=== PATIENT | female | born 1955 | race Caucasian/White ===

== ENCOUNTER → 2016-08-26 | Outpatient (CLI) | payer OTHER ==
[~2016-08-26] VITALS: Ht 165.1 cm; Wt 123.4 kg
[~2016-08-26] MED LIST: AMITIZA; ASPI81TA3; ASPI81TA85 PO; CALC600T10; CHLO25TA PO; ENABLEX; ESTR1TD; FLAG500T; FLUO20CA9 PO; FOLI1TAB2 PO; GABA300C3 PO; HYDR25TA6; IMODIUM; K-TA10TA PO; LIDOCAINE 2% INJ 100 MG/5 ML SDV (FOR ANES.) As Ordered ONE; LOSA50TA20 PO; METF500T PO; METO10TA2; NEUR600T PO; NS 1,000 ML IV SCH; OMEG100011 PO; PAXI40TA; PEPT525S; PRIL20CA; PRIL20CA9 PO; PROPOFOL 200 MG/20 ML VIAL As Ordered ONE; SIMV40TA2 PO; TELM20TA; TENO25TA; VITA10002 PO; VITA200038 PO; VITORIN
--- NOTE | 2016-08-26 13:50 | ROOR ---
Patient Name: Nishi Dominguez Procedure Date: 08/26/2016 1:35 PM Date of : 1955 Age: 61 Room: [facility], [facility] Gender: Female Note Status: Finalized Procedure: Upper GI endoscopy Indications: Surveillance for malignancy due to personal history of Ricketts's esophagus Providers: Daniel BALES MD Referring MD: PATRICIA HAYES MD Requesting Provider: Medicines: Monitored Anesthesia Care Complications: No immediate complications. Procedure: Pre-Anesthesia Assessment: - The heart rate, respiratory rate, oxygen saturations, blood pressure, adequacy of pulmonary ventilation, and response to care were monitored throughout the procedure. The Endoscope was introduced through the mouth, and advanced to the second part of duodenum. The upper GI endoscopy was accomplished without difficulty. The patient tolerated the procedure well. Findings: The esophagus and gastroesophageal junction were examined with white light and narrow band imaging (NBI) from a forward view and retroflexed position. There were esophageal mucosal changes secondary to established short-segment Ricketts's disease. These changes involved the mucosa at the upper extent of the gastric folds (36 cm from the incisors) extending to the Z-line (35 cm from the incisors). [place]-colored mucosa was present. The maximum longitudinal extent of these esophageal mucosal changes was 2 cm in length. Mucosa was biopsied with a cold forceps for histology randomly. A small hiatal hernia was present. A few sessile fundic gland polyps were found in the gastric body. The exam was otherwise without abnormality. Impression: - Esophageal mucosal changes secondary to established (2 cm)/short-segment Ricketts's disease. Biopsied. - Small hiatal hernia. - A few fundic gland polyps. - The examination was otherwise normal. Recommendation: - Continue present medications. - Await pathology results. - Repeat upper endoscopy in 3 years for surveillance based on pathology results. Daniel Bales MD Daniel BALES MD 08/26/2016 1:49:47 PM This report has been signed electronically. Number of Addenda: 0 Note Initiated On: 08/26/2016 1:35 PM Estimated Blood Loss: Estimated blood loss: none.
--- NOTE | 2016-08-26 14:03 | ROOR ---
Patient Name: Nishi Dominguez Procedure Date: 08/26/2016 1:35 PM Date of : 1955 Age: 61 Room: [facility] Gender: Female Note Status: Finalized Procedure: Colonoscopy Indications: High risk colon cancer surveillance: Personal history of colonic polyps, Last colonoscopy: June 2013 Providers: Daniel BALES MD Referring MD: PATRICIA HAYES MD Requesting Provider: Medicines: Monitored Anesthesia Care Complications: No immediate complications. Procedure: Pre-Anesthesia Assessment: - The heart rate, respiratory rate, oxygen saturations, blood pressure, adequacy of pulmonary ventilation, and response to care were monitored throughout the procedure. The Colonoscope was introduced through the anus and advanced to the cecum, identified by appendiceal orifice and ileocecal valve. The colonoscopy was performed without difficulty. The patient tolerated the procedure well. The quality of the bowel preparation was good. Findings: The perianal and digital rectal examinations were normal. The ileocecal valve was lipomatous. Small Internal Hemorrhoids. The exam was otherwise without abnormality on direct and retroflexion views. (Exam: Complete, Prep: Good or Excellent.) Impression: - Small Internal Hemorrhoids. - The examination of the colon is normal on direct and retroflexion views. - No specimens collected. Recommendation: - Repeat colonoscopy in 5 years for surveillance based on personal history of previous adenomatous polyps. Daniel Bales MD Daniel BALES MD 08/26/2016 2:03:04 PM This report has been signed electronically. Number of Addenda: 0 Note Initiated On: 08/26/2016 1:35 PM Estimated Blood Loss: Estimated blood loss: none.
[2016-08-26 14:32] VITALS: BP 137/78
== END ==
LOC: M OPP 10:23
PROVIDERS: ATTEND Internal Medicine Gastroenterology
DX: Z12.11 Encounter for screening for malignant neoplasm of colon (principal); Z86.010 Personal history of colon polyps; K63.89 Other specified diseases of intestine; K64.8 Other hemorrhoids; K22.70 Barrett's esophagus without dysplasia; K44.9 Diaphragmatic hernia without obstruction or gangrene; K31.7 Polyp of stomach and duodenum; E11.9 Type 2 diabetes mellitus without complications; K21.9 Gastro-esophageal reflux disease without esophagitis; F32.9 Major depressive disorder, single episode, unspecified; E78.00 Pure hypercholesterolemia, unspecified; K59.00 Constipation, unspecified; K58.9 Irritable bowel syndrome, unspecified; M19.90 Unspecified osteoarthritis, unspecified site; R06.83 Snoring; G47.30 Sleep apnea, unspecified; F03.90 Unspecified dementia, unspecified severity, without behavioral disturbance, psychotic disturbance, mood disturbance, and anxiety; E04.1 Nontoxic single thyroid nodule; Z79.82 Long term (current) use of aspirin; Z79.899 Other long term (current) drug therapy; Z79.84 Long term (current) use of oral hypoglycemic drugs

== ENCOUNTER → 2016-10-05 | Outpatient (REF) | payer OTHER ==
[~2016-10-05] MED LIST changes: +GABA-282 PO; -GABA300C3 PO; -LIDOCAINE 2% INJ 100 MG/5 ML SDV (FOR ANES.) As Ordered ONE; -NS 1,000 ML IV SCH; -PROPOFOL 200 MG/20 ML VIAL As Ordered ONE
[2016-10-05 17:23] LABS: ALBUMIN 3.4 GM/DL (3.2-5.2); ALBUMIN/GLOBULIN RATIO 0.89 (1.00-1.93); ALKALINE PHOSPHATASE 81 U/L (45-117); ALT/SGPT 25 U/L (12-78); ANION GAP 10 MEQ/L (8-16); AST/SGOT 18 U/L (15-37); BILIRUBIN,TOTAL 0.6 MG/DL (0.2-1.0); BLOOD UREA NITROGEN 17 MG/DL (7-18); CALCIUM LEVEL 9.4 MG/DL (8.8-10.2); CARBON DIOXIDE LEVEL 30 MEQ/L (21-32); CHLORIDE LEVEL 101 MEQ/L (98-107); CHOLESTEROL LEVEL 158 MG/DL (<200); CREATININE FOR GFR 0.89 MG/DL (0.55-1.02); GLOMERULAR FILTRATION RATE > 60.0 (>45); GLUCOSE, FASTING 91 MG/DL (80-110); SODIUM LEVEL 141 MEQ/L (136-145); TOTAL PROTEIN 7.2 GM/DL (6.4-8.2); TRIGLYCERIDES LEVEL 166 MG/DL (<150)
[2016-10-05 17:54] LABS: MEAN CORPUSCULAR HEMOGLOBIN 28.6 pg (27.0-33.0); MEAN CORPUSCULAR VOLUME 89.3 fl (80.0-96.0); RED CELL DISTRIBUTION WIDTH 13.6 % (11.5-14.5); RETIC HEMOGLOBIN CONTENT CHr 30.1 PG (24-36); RETICULOCYTE % ADVIA2120 2.7 % (0.5-1.5); WHITE BLOOD COUNT 9.7 K/mm3 (4.0-10.0)
[2016-10-05 17:57] LABS: FOLATE > 24.0 NG/ML; VITAMIN B12 LEVEL 1448 PG/ML
== END ==
LOC: M LABDRAW1 15:47
PROVIDERS: ATTEND Family Medicine
DX: E78.5 Hyperlipidemia, unspecified (principal); I10 Essential (primary) hypertension; D50.8 Other iron deficiency anemias; E55.9 Vitamin D deficiency, unspecified

== ENCOUNTER → 2016-12-06 | Outpatient (REF) | payer OTHER ==
[~2016-12-06] MED LIST changes: +DRIS50002 PO
[2016-12-06 20:59] LABS: PERCENT SATURATION 12.5 % (13.2-37.4)
== END ==
LOC: M LABNEURO 16:55
PROVIDERS: ATTEND Psychiatry & Neurology Neurology
DX: E11.9 Type 2 diabetes mellitus without complications (principal); R20.2 Paresthesia of skin

== ENCOUNTER → 2016-12-12 | Day surgery (SDC) | payer OTHER ==
[~2016-12-12] VITALS: Ht 165.1 cm; Wt 127.0 kg
[~2016-12-12] MED LIST changes: +ACETAMINOPHEN 325 MG TAB PO PRN; +AcetaZOLAMIDE 500 MG ER CAP PO ONE; +BSS with VANC/TOB/EPI for EYE CASES IR ONE; +CEFUROXIME 1MG/0.1ML INTRACAMERAL INJ As Ordered ONE; +CYCLOPENTOLATE 2% OPHTH SOLN 2ML BTL OD ONE; +HEALON DUET (HEALON 10MG/ML 0.55ML & HEALON ENDOCOAT 30MG/ML 0.85ML) As Ordered ONE; +KETOROLAC 0.5% OPHTH SOLN OD ONE; +LIDOCAINE 1% SDV 5 ML VIAL As Ordered ONE; +LIDOCAINE 4% INJ 5 ML AMP OU ONE; +LR 1,000 ML IV SCH; +MIDAZOLAM INJ 2 MG/2 ML VIAL (J2250) As Ordered ONE; +MOXIFLOXACIN IN BSS 0.25MG/0.25ML INTRACAMERAL INJ (OR EYE ONLY)(J2280) As Ordered ONE; +OFLOXACIN 0.3 % (OCUFLOX) OPTH SOL 5ML OD ONE; +PHENYLEPHRINE 2.5% OPHTH SOL 2ML OD ONE; +PHENYLEPHRINE HCL 10 % OPHTH. SOL 5ML As Ordered ONE; +PHENYLEPHRINE HCL 10 % OPHTH. SOL 5ML OD ONE; +POVIDONE-IODINE 5% OPHTH PREP SOL 30ML As Ordered ONE; +PROPARACAINE 0.5% OPHTH SOL 15ML OD PRN; +TRIAMCINOLONE PRES FR 40 MG/ML 1ML(TRIESENCE)(OR EYE ONLY)(J3300 PER 1MG) As Ordered ONE; +TRIMETHOBENZAMIDE 300 MG CAP PO PRN; +TROPICAMIDE 1% OPHTH SOLN 2ML OD ONE; +fentaNYL 100 MCG/2 ML INJECTION (J3010) As Ordered ONE
[2016-12-12 09:35] VITALS: BP 135/63
--- NOTE | 2016-12-20 21:03 | RO ---
DATE OF PROCEDURE: 12/12/2016 PREPROCEDURE DIAGNOSIS: Cataract right eye. POSTPROCEDURE DIAGNOSIS: Cataract right eye. PROCEDURE: Phacoemulsification with intraocular lens implantation, 19.5 diopters. SURGEON: Dr. Carlos Rutledge SHIPPING AGENT: None. ANESTHESIA: COMPLICATIONS: None. DESCRIPTION OF PROCEDURE: The patient was brought to the operating room, laid in supine position, the right eye was prepped and draped in a sterile fashion for ophthalmic surgery and a lid speculum was placed. Sideport incision was made and EndoCoat was injected into the anterior chamber. Temporal clear corneal incision was made with a 2.5 mm keratome, followed by capsulorrhexis. This was followed by hydrodissection and phacoemulsification in divide and conquer method within the capsular bag. Excess cortical material was then aspirated followed by injection of Healon into the anterior chamber and placement of the intraocular lens. Excess Healon was then aspirated. The wound was hydrated, intracameral moxifloxacin was given and sub-Tenon Kenalog was given. At the end of the case, lid speculum was removed. No leaks were noted. The patient returned to the recovery room in stable condition.
== END | disposition home or self-care (01) ==
LOC: M SDC 07:08
PROVIDERS: ATTEND Ophthalmology
DX: H26.9 Unspecified cataract (principal); G56.00 Carpal tunnel syndrome, unspecified upper limb; F41.8 Other specified anxiety disorders; R06.00 Dyspnea, unspecified; R60.9 Edema, unspecified; I13.10 Hypertensive heart and chronic kidney disease without heart failure, with stage 1 through stage 4 chronic kidney disease, or unspecified chronic kidney disease; R53.83 Other fatigue; E78.5 Hyperlipidemia, unspecified; R73.01 Impaired fasting glucose; K58.0 Irritable bowel syndrome with diarrhea; M54.5 Low back pain; R20.1 Hypoesthesia of skin; E66.8 Other obesity; G47.30 Sleep apnea, unspecified; M19.90 Unspecified osteoarthritis, unspecified site; K42.9 Umbilical hernia without obstruction or gangrene; E55.9 Vitamin D deficiency, unspecified; N18.2 Chronic kidney disease, stage 2 (mild); E04.1 Nontoxic single thyroid nodule; K31.84 Gastroparesis; K57.30 Diverticulosis of large intestine without perforation or abscess without bleeding; R06.2 Wheezing; R06.83 Snoring; M10.9 Gout, unspecified; R32 Unspecified urinary incontinence; K44.9 Diaphragmatic hernia without obstruction or gangrene; R29.898 Other symptoms and signs involving the musculoskeletal system; F03.90 Unspecified dementia, unspecified severity, without behavioral disturbance, psychotic disturbance, mood disturbance, and anxiety; Z90.710 Acquired absence of both cervix and uterus; Z98.51 Tubal ligation status; Z79.899 Other long term (current) drug therapy; Z79.82 Long term (current) use of aspirin; Z87.410 Personal history of cervical dysplasia; Z79.84 Long term (current) use of oral hypoglycemic drugs
CPT/HCPCS: 66984; J2250; J2280; J3010; J3300

== ENCOUNTER → 2018-03-12 | Outpatient (REF) | payer OTHER ==
[2018-03-12 18:32] LABS: FOLATE > 24.0 NG/ML
== END ==
LOC: M LABNEURO 15:02
DX: D53.8 Other specified nutritional anemias (principal)

== ENCOUNTER → 2018-06-12 | Outpatient (REF) | payer OTHER ==
[~2018-06-12] MED LIST changes: -ACETAMINOPHEN 325 MG TAB PO PRN; -AcetaZOLAMIDE 500 MG ER CAP PO ONE; -BSS with VANC/TOB/EPI for EYE CASES IR ONE; -CEFUROXIME 1MG/0.1ML INTRACAMERAL INJ As Ordered ONE; -CYCLOPENTOLATE 2% OPHTH SOLN 2ML BTL OD ONE; -DRIS50002 PO; +DRIS50003 PO; +FLUO20CA19 PO; -FLUO20CA9 PO; -FOLI1TAB2 PO; +FOLI1TAB5 PO; -GABA-282 PO; +GABA-843 PO; -HEALON DUET (HEALON 10MG/ML 0.55ML & HEALON ENDOCOAT 30MG/ML 0.85ML) As Ordered ONE; -KETOROLAC 0.5% OPHTH SOLN OD ONE; -LIDOCAINE 1% SDV 5 ML VIAL As Ordered ONE; -LIDOCAINE 4% INJ 5 ML AMP OU ONE; -LOSA50TA20 PO; +LOSA50TA73 PO; -LR 1,000 ML IV SCH; -METF500T PO; +METF500T13 PO; -MIDAZOLAM INJ 2 MG/2 ML VIAL (J2250) As Ordered ONE; -MOXIFLOXACIN IN BSS 0.25MG/0.25ML INTRACAMERAL INJ (OR EYE ONLY)(J2280) As Ordered ONE; -OFLOXACIN 0.3 % (OCUFLOX) OPTH SOL 5ML OD ONE; -PHENYLEPHRINE 2.5% OPHTH SOL 2ML OD ONE; -PHENYLEPHRINE HCL 10 % OPHTH. SOL 5ML As Ordered ONE; -PHENYLEPHRINE HCL 10 % OPHTH. SOL 5ML OD ONE; -POVIDONE-IODINE 5% OPHTH PREP SOL 30ML As Ordered ONE; -PROPARACAINE 0.5% OPHTH SOL 15ML OD PRN; -TRIAMCINOLONE PRES FR 40 MG/ML 1ML(TRIESENCE)(OR EYE ONLY)(J3300 PER 1MG) As Ordered ONE; -TRIMETHOBENZAMIDE 300 MG CAP PO PRN; -TROPICAMIDE 1% OPHTH SOLN 2ML OD ONE; -fentaNYL 100 MCG/2 ML INJECTION (J3010) As Ordered ONE
[2018-06-12 18:06] LABS: ALBUMIN 3.2 GM/DL (3.2-5.2); BILIRUBIN,DIRECT 0.2 MG/DL (0.0-0.2); BILIRUBIN,TOTAL 0.6 MG/DL (0.2-1.0); CALCIUM LEVEL 8.9 MG/DL (8.8-10.2); CHOLESTEROL RISK RATIO 3.511 (<5); TOTAL PROTEIN 7.1 GM/DL (6.4-8.2)
[2018-06-12 18:08] LABS: TOTAL 25(OH) VITAMIN D 41.2 NG/ML (30.0-100.0)
== END ==
LOC: M LABDRAW1 17:07
PROVIDERS: ATTEND Family Medicine
DX: E78.2 Mixed hyperlipidemia (principal)

== ENCOUNTER → 2018-07-12 | Outpatient (CLI) | payer OTHER ==
[~2018-07-12] MED LIST changes: +FOLI1TAB11 PO; -FOLI1TAB5 PO; -LOSA50TA73 PO; +LOSA50TA88 PO
--- NOTE | 2018-07-18 06:17 | REP ---
Clinical: Diarrhea. Sitz marker study. Technique: Three AP views of of the abdomen and pelvis. Findings: The bowel gas pattern is nonspecific although mild to moderate fecal stasis cannot be excluded. The patient appears to be status post cholecystectomy. No residual sitz markers are identified. Degenerative changes to the visualized skeletal structures noted. No organomegaly. Impression: Fecal stasis suggested. No residual sitz markers noted. Electronically Signed by Torsten Mata MD 07/18/2018 06:09 A
== END ==
LOC: M RAD 14:08
PROVIDERS: ATTEND Internal Medicine Gastroenterology
DX: R19.7 Diarrhea, unspecified (principal)

== ENCOUNTER → 2018-12-11 | Outpatient (REF) | payer OTHER ==
[~2018-12-11] MED LIST changes: +MICA5TAB; -TELM20TA
[2018-12-11 16:24] LABS: ALBUMIN 3.3 GM/DL (3.2-5.2); BILIRUBIN,DIRECT 0.1 MG/DL (0.0-0.2); BILIRUBIN,TOTAL 0.5 MG/DL (0.2-1.0); CHOLESTEROL RISK RATIO 2.843 (<5); TOTAL PROTEIN 7.1 GM/DL (6.4-8.2)
== END ==
LOC: M LABDRAW1 11:28
PROVIDERS: ATTEND Family Medicine
DX: E78.2 Mixed hyperlipidemia (principal)

== ENCOUNTER → 2019-02-14 | Outpatient (REF) | payer OTHER ==
[~2019-02-14] MED LIST changes: +CYAN100049 PO; -SIMV40TA2 PO; +SIMV40TA20 PO; -VITA10002 PO
[2019-02-14 16:38] LABS: BLOOD UREA NITROGEN 10 MG/DL (7-18); CALCIUM LEVEL 9.2 MG/DL (8.8-10.2); CARBON DIOXIDE LEVEL 31 MEQ/L (21-32); CHLORIDE LEVEL 101 MEQ/L (98-107); CREATININE FOR GFR 0.87 MG/DL (0.55-1.30); GLOMERULAR FILTRATION RATE > 60.0 (>45); GLUCOSE, FASTING 94 MG/DL (70-100); SODIUM LEVEL 138 MEQ/L (136-145)
== END ==
LOC: M LABDRAW1 15:41
PROVIDERS: ATTEND Family Medicine
DX: E87.6 Hypokalemia (principal)

== ENCOUNTER 2019-04-30 15:07 | Emergency (ER) | payer OTHER ==
[~2019-04-30] VITALS: Ht 165.1 cm; Wt 117.7 kg
[~2019-04-30 15:07] MED LIST changes: +SIMV40TA2 PO; -SIMV40TA20 PO
[2019-04-30] MEDS ORDERED: GI COCKTAIL 50ML BTL(HYOSCYAMINE/MAALOX/LIDOCAINE VISCOUS)(1:3:1) PO ONE (15:45)
[2019-04-30 16:09] LABS: ALBUMIN 3.4 GM/DL (3.2-5.2); ALT/SGPT 25 U/L (12-78); BILIRUBIN,DIRECT < 0.1 MG/DL (0.0-0.2); BILIRUBIN,TOTAL 0.6 MG/DL (0.2-1.0); BLOOD UREA NITROGEN 12 MG/DL (7-18); CALCIUM LEVEL 9.3 MG/DL (8.8-10.2); CARBON DIOXIDE LEVEL 26 MEQ/L (21-32); CHLORIDE LEVEL 99 MEQ/L (98-107); CK-MB VALUE MASS 2.5 NG/ML (<3.6); CPK CREATINE PHOSPHOKINASE 119 U/L (26-192); GLOMERULAR FILTRATION RATE > 60.0 (>45); GLUCOSE, FASTING 90 MG/DL (70-100); POTASSIUM SERUM 3.8 MEQ/L (3.5-5.1); SODIUM LEVEL 136 MEQ/L (136-145); TOTAL PROTEIN 7.4 GM/DL (6.4-8.2); TROPONIN I < 0.02 NG/ML (< 0.10)
--- NOTE | 2019-04-30 16:14 | REP ---
Portable chest x-ray: Single view. History: Chest pain. Comparison study: August 20, 2014. Findings: EKG monitoring electrodes are seen. The lungs are symmetrically aerated and clear. Heart size is mildly increased but unchanged. Pulmonary vasculature is not increased. No significant bony abnormality is seen. There is stable degenerative discogenic spurring in the thoracic spine along the right lateral border unchanged. Impression: No acute disease. Mild cardiomegaly unchanged. Electronically Signed by Milo Quiroga MD 04/30/2019 04:05 P
[2019-04-30 16:22] LABS: BASO % 0.4 % (0.0-1.0); EOS # 0.1 10^3/uL (0.0-0.5); EOS % 0.6 % (0.0-3.0); HEMATOCRIT 42.7 % (36.0-47.0); HEMOGLOBIN 13.6 g/dl (12.0-15.5); LYMPH # 1.8 10^3/uL (1.5-5.0); LYMPH % 16.6 % (24.0-44.0); MEAN CORPUSCULAR HEMOGLOBIN 27.8 pg (27.0-33.0); MEAN CORPUSCULAR HGB CONC 31.9 g/dl (32.0-36.5); MEAN CORPUSCULAR VOLUME 87.1 fl (80.0-96.0); MONO # 0.5 10^3/uL (0.0-0.8); MONO % 4.5 % (0.0-5.0); NEUTROPHILS # 8.3 10^3/uL (1.5-8.5); NEUTROPHILS % 77.3 % (36.0-66.0); PLATELET COUNT, AUTOMATED 288 10^3/uL (150-450); WHITE BLOOD COUNT 10.7 10^3/uL (4.0-10.0)
[2019-04-30 16:38] LABS: NT-PRO BNP 67 PG/ML (<125)
[2019-04-30] MEDS ORDERED: KETOROLAC 30 MG/ML VIAL (J1885) IV ONE (17:45)
[2019-04-30 18:37] LABS: CK-MB VALUE MASS 2.4 NG/ML (<3.6); CPK CREATINE PHOSPHOKINASE 120 U/L (26-192); TROPONIN I < 0.02 NG/ML (< 0.10)
[2019-04-30 19:15] VITALS: BP 132/64
--- NOTE | 2019-05-01 05:42 | ECGEPIP ---
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
--- NOTE | 2019-05-01 05:45 | ECGEPIP ---
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
== END 2019-04-30 19:30 | disposition home or self-care (01) ==
LOC: M ED 15:07
DX: R07.89 Other chest pain (principal); E11.9 Type 2 diabetes mellitus without complications; I10 Essential (primary) hypertension; G47.33 Obstructive sleep apnea (adult) (pediatric); G89.29 Other chronic pain; M54.9 Dorsalgia, unspecified; Z79.899 Other long term (current) drug therapy; Z79.84 Long term (current) use of oral hypoglycemic drugs; Z79.82 Long term (current) use of aspirin
CPT/HCPCS: 71045; 80048; 80076; 82550; 82553; 83880; 84484; 85025; 93005; 93041; 94760; 96374; 99285; J1885

== ENCOUNTER → 2020-02-06 | Outpatient (REF) | payer OTHER, MEDICARE ==
[~2020-02-06] MED LIST changes: -ASPI81TA85 PO; +ASPI81TA86 PO; -FLUO20CA19 PO; +FLUO20CA22 PO; -SIMV40TA2 PO; +SIMV40TA20 PO
== END ==
LOC: M LAB REF 09:31
PROVIDERS: ATTEND Internal Medicine Endocrinology, Diabetes & Metabolism
DX: E04.2 Nontoxic multinodular goiter (principal)

== ENCOUNTER 2020-05-09 11:56 | Emergency (ER) | payer OTHER, MEDICARE ==
[~2020-05-09] VITALS: Ht 165.1 cm; Wt 122.1 kg
[2020-05-09 11:58] VITALS: BP 114/78
[2020-05-09] MEDS ORDERED: CHOL4POW2 (12:22)
[2020-05-09] MEDS ORDERED: NYST50SS (12:22)
--- NOTE | 2020-05-09 13:32 | REP ---
INDICATION: sore throat x 7 weeks. COMPARISON: For 1207 FINDINGS: AP and lateral views of the neck soft tissues show the pharyngeal, hypopharyngeal and tracheal airways to be within normal limits. The anterior spinal soft tissues are within normal limits. IMPRESSION: Negative exam. No significant change. <Electronically signed by Avinash Cherry > 05/09/20 [id number]
== END 2020-05-09 13:54 | disposition home or self-care (01) ==
LOC: M ED 11:56
DX: J02.9 Acute pharyngitis, unspecified (principal); E11.9 Type 2 diabetes mellitus without complications; I10 Essential (primary) hypertension; J43.9 Emphysema, unspecified; E78.5 Hyperlipidemia, unspecified; F33.9 Major depressive disorder, recurrent, unspecified; Z79.899 Other long term (current) drug therapy; Z79.84 Long term (current) use of oral hypoglycemic drugs; Z79.82 Long term (current) use of aspirin

== ENCOUNTER → 2021-02-10 | Outpatient (CLI) | payer OTHER, MEDICARE ==
[~2021-02-10] MED LIST changes: +CHOL4POW2; +ECOT81TA5 PO; +FLUO40CA PO; +GABA-282 PO; -GABA-843 PO; +NYST50SS
== END ==
LOC: M LABSMTC 10:50
PROVIDERS: ATTEND Anesthesiology
DX: Z01.812 Encounter for preprocedural laboratory examination (principal); Z11.52 Encounter for screening for COVID-19

== ENCOUNTER 2021-02-15 08:59 | Day surgery (SDC) | payer OTHER ==
[~2021-02-15] VITALS: Ht 165.1 cm; Wt 114.3 kg
[~2021-02-15 08:59] MED LIST changes: +NS 1,000 ML IV ONE
[2021-02-15] MEDS ORDERED: LIDOCAINE 2% 100MG/5ML SDV (FOR ANES.) As Ordered ONE (09:31)
[2021-02-15] MEDS ORDERED: propofoL 200 MG/20 ML VIAL As Ordered ONE (09:31)
[2021-02-15] MEDS ORDERED: fentaNYL 100 MCG/2 ML INJECTION (J3010) As Ordered ONE (09:31)
--- NOTE | 2021-02-15 10:02 | ROOR ---
Patient Name: Nishi Dominguez Procedure Date: 02/15/2021 9:38 AM Date of : 1955 Age: 66 Room: [facility] Gender: Female Note Status: Finalized Procedure: Upper GI endoscopy Indications: Surveillance for malignancy due to personal history of Ricketts's esophagus Providers: Daniel Bales MD Referring MD: PATRICIA HAYES MD Requesting Provider: Medicines: Monitored Anesthesia Care Complications: No immediate complications. Procedure: Pre-Anesthesia Assessment: - The heart rate, respiratory rate, oxygen saturations, blood pressure, adequacy of pulmonary ventilation, and response to care were monitored throughout the procedure. The Endoscope was introduced through the mouth, and advanced to the second part of duodenum. The upper GI endoscopy was accomplished without difficulty. The patient tolerated the procedure well. Findings: Circumferential salmon-colored mucosa was present from 34 to 36 cm. No other visible abnormalities were present. The maximum longitudinal extent of these esophageal mucosal changes was 2 cm in length. Biopsies were taken with a cold forceps for histology. The exam of the esophagus was otherwise normal. Small Hiatal Hernia. Multiple small sessile fundic gland polyps were found in the gastric fundus and in the gastric body. Biopsies were taken with a cold forceps for histology. The exam of the stomach was otherwise normal. The examined duodenum was normal. Impression: - [place]-colored mucosa. Biopsied. - Small Hiatal Hernia. - Multiple fundic gland polyps. Biopsied. - Normal examined duodenum. Recommendation: - Continue present medications. - Repeat upper endoscopy in 3 years for surveillance. Procedure Code(s): --- Professional --- 19463, Esophagogastroduodenoscopy, flexible, transoral; with biopsy, single or multiple Diagnosis Code(s): --- Professional --- K31.7, Polyp of stomach and duodenum K22.70, Ricketts's esophagus without dysplasia CPT copyright 2019 [employer]. All rights reserved. The codes documented in this report are preliminary and upon audit director review may be revised to meet current compliance requirements. Daniel Bales MD Daniel Bales MD 02/15/2021 10:02:06 AM Electronically signed by Daniel Bales MD Number of Addenda: 0 Note Initiated On: 02/15/2021 9:38 AM Estimated Blood Loss: Estimated blood loss: none.
--- NOTE | 2021-02-15 10:29 | ROOR ---
Patient Name: Nishi Dominguez Procedure Date: 02/15/2021 9:39 AM Date of : 1955 Age: 66 Room: [facility] Gender: Female Note Status: Finalized Procedure: Colonoscopy Indications: High risk colon cancer surveillance: Personal history of colonic polyps Providers: Daniel Bales MD Referring MD: PATRICIA HAYES MD Requesting Provider: Medicines: Monitored Anesthesia Care Complications: No immediate complications. Procedure: Pre-Anesthesia Assessment: - The heart rate, respiratory rate, oxygen saturations, blood pressure, adequacy of pulmonary ventilation, and response to care were monitored throughout the procedure. The Colonoscope was introduced through the anus and advanced to the cecum, identified by appendiceal orifice and ileocecal valve. The colonoscopy was performed without difficulty. The patient tolerated the procedure well. The quality of the bowel preparation was good. Findings: The perianal and digital rectal examinations were normal. Three sessile polyps were found in the sigmoid colon, splenic flexure and ascending colon. The polyps were 4 to 6 mm in size. These polyps were removed with a cold snare. Resection and retrieval were complete. Mild sigmoid diverticulosis and small internal hemorrhoids. The exam was otherwise without abnormality on direct and retroflexion views. The ileocecal valve was moderately lipomatous. Impression: - Three 4 to 6 mm polyps in the sigmoid colon, at the splenic flexure and in the ascending colon, removed with a cold snare. Resected and retrieved. - Mild sigmoid diverticulosis and small internal hemorrhoids. - Lipomatous ileocecal valve. - The examination was otherwise normal on direct and retroflexion views. Recommendation: - Telephone endoscopist for pathology results in 2 weeks. - If the pathology report reveals adenomatous tissue, then repeat the colonoscopy for surveillance in 3 - 5 years. Procedure Code(s): --- Professional --- 67364, Colonoscopy, flexible; with removal of tumor(s), polyp(s), or other lesion(s) by snare technique Diagnosis Code(s): --- Professional --- K63.89, Other specified diseases of intestine K63.5, Polyp of colon Z86.010, Personal history of colonic polyps CPT copyright 2019 [employer] [place] [employer]. All rights reserved. The codes documented in this report are preliminary and upon cpc coder review may be revised to meet current compliance requirements. Daniel Bales MD Daniel Bales MD 02/15/2021 10:28:43 AM Electronically signed by Daniel Bales MD Number of Addenda: 0 Note Initiated On: 02/15/2021 9:39 AM Estimated Blood Loss: Estimated blood loss: none.
[2021-02-15 10:56] VITALS: BP 126/68
== END 2021-02-15 10:57 | disposition home or self-care (01) ==
LOC: M OPP 08:59
PROVIDERS: ATTEND Internal Medicine Gastroenterology
DX: K63.5 Polyp of colon (principal); K57.30 Diverticulosis of large intestine without perforation or abscess without bleeding; K64.8 Other hemorrhoids; K63.89 Other specified diseases of intestine; K31.7 Polyp of stomach and duodenum; K44.9 Diaphragmatic hernia without obstruction or gangrene; K22.70 Barrett's esophagus without dysplasia; Z79.82 Long term (current) use of aspirin; Z79.899 Other long term (current) drug therapy
CPT/HCPCS: 43239; 45385; 88305; J3010

== ENCOUNTER → 2021-04-01 | Outpatient (CLI) | payer OTHER ==
[~2021-04-01] MED LIST changes: -NS 1,000 ML IV ONE
--- NOTE | 2021-04-01 14:09 | REP ---
INDICATION: ATHSCLNATIVE ARTERIES W/ CLAUDICATION SOURAV LEGS COMPARISON: None. TECHNIQUE: Real time ross scale and color Doppler evaluation of the bilateral lower extremity arterial vasculature using linear high frequency transducer. FINDINGS: Ross scale and color images demonstrate mild to moderate amounts of atheromatous plaquing without evidence of stenosis or occlusion. Doppler interrogation demonstrates normal triphasic arterial wave forms to the level of the popliteal arteries followed by biphasic wave patterns to the ankles bilaterally. Ankle/brachial indices were not obtained due to arterial calcifications. 3.6 x 6.0 x 2.0 cm Rodriguez's cyst in the left popliteal fossa. Peak systolic velocities (cm/sec) Common femoral artery: Right 133; Left 142 Profunda femoris: Right 78; Left 72 SFA (proximal): Right 125; Left 114 SFA (mid): Right 75; Left 76 SFA (distal): Right 66; Left 67 Popliteal artery: Right 42; Left 44 JAGRUTI (prox.): Right 63; Left 52 Tibioperoneal trunk: Right 33; Left 45 MANAGER TRAINEE (prox.): Right 58; Left 36 MANAGER TRAINEE (distal): Right 40; Left 62 JAGRUTI (distal): Right 56; Left 41 IMPRESSION: 1. Moderate bilateral atheromatous changes without stenosis or occlusion. 2. Rodriguez's cyst in the left popliteal fossa. <Electronically signed by Torsten Mata > 04/01/21 0589
== END ==
LOC: M RAD 12:52
PROVIDERS: ATTEND Surgery Vascular Surgery
DX: I70.213 Atherosclerosis of native arteries of extremities with intermittent claudication, bilateral legs (principal); M71.22 Synovial cyst of popliteal space [Baker], left knee

== ENCOUNTER → 2022-02-02 | Outpatient (CLI) | payer OTHER ==
[~2022-02-02] MED LIST changes: -CHOL4POW2; +CHOL4POW35; +LOSA50TA28 PO; -LOSA50TA88 PO
== END ==
LOC: M SOG 09:16
PROVIDERS: ATTEND Orthopaedic Surgery Adult Reconstructive Orthopaedic Surgery
DX: M85.651 Other cyst of bone, right thigh (principal); M85.652 Other cyst of bone, left thigh

== ENCOUNTER → 2022-02-23 | Outpatient (CLI) | payer OTHER ==
[~2022-02-23] MED LIST changes: +BUPIVACAINE HCL 0.5% 30ML VIAL As Ordered ONE; +ISOVUE-300 61% 50ML VIAL As Ordered ONE; +LIDOCAINE 1% MDV 20ML VIAL As Ordered ONE; +methylPREDNISolone 80MG/ML SUSP 1ML VIAL (J1040) As Ordered ONE
== END ==
LOC: M RAD 14:26
PROVIDERS: ATTEND Orthopaedic Surgery Adult Reconstructive Orthopaedic Surgery
DX: M16.0 Bilateral primary osteoarthritis of hip (principal)
CPT/HCPCS: 76000; J1040; Q9967

== ENCOUNTER → 2022-09-29 | Outpatient (CLI) | payer OTHER ==
[~2022-09-29] MED LIST changes: -BUPIVACAINE HCL 0.5% 30ML VIAL As Ordered ONE; -CHOL4POW35; +CHOL4POW36; -ISOVUE-300 61% 50ML VIAL As Ordered ONE; -LIDOCAINE 1% MDV 20ML VIAL As Ordered ONE; +NYST-38; -NYST50SS; -methylPREDNISolone 80MG/ML SUSP 1ML VIAL (J1040) As Ordered ONE
== END ==
LOC: M SOG 11:09
PROVIDERS: ATTEND Orthopaedic Surgery Adult Reconstructive Orthopaedic Surgery
DX: M17.0 Bilateral primary osteoarthritis of knee (principal)

== ENCOUNTER 2023-10-14 12:15 | Emergency (ER) | payer OTHER, MEDICARE ==
[~2023-10-14] VITALS: Ht 165.1 cm; Wt 109.1 kg
[~2023-10-14 12:15] MED LIST changes: +ALBU6.7H6 INH; +ALPH600C PO; +B-12100021 PO; +CALC600T57 PO; +CLOP75TA2 PO; +FENO160T10 PO; +FURO20TA2 PO; -K-TA10TA PO; +MAGN400C PO; +METF-838 PO; +OXYB5TAB14 PO; +PANT20TA6 PO; +POTA-164 PO
[2023-10-14 14:33] VITALS: BP 109/55; TEMP 99.4; O2SAT 96
== END 2023-10-14 14:42 | disposition home or self-care (01) ==
LOC: M ED 12:15
DX: S00.03XA Contusion of scalp, initial encounter (principal); W01.10XA Fall on same level from slipping, tripping and stumbling with subsequent striking against unspecified object, initial encounter; Y92.001 Dining room of unspecified non-institutional (private) residence as the place of occurrence of the external cause; Y93.01 Activity, walking, marching and hiking; Y99.8 Other external cause status; Z86.73 Personal history of transient ischemic attack (TIA), and cerebral infarction without residual deficits; I10 Essential (primary) hypertension; R73.01 Impaired fasting glucose; Z79.899 Other long term (current) drug therapy; Z79.84 Long term (current) use of oral hypoglycemic drugs; Z79.82 Long term (current) use of aspirin; Z79.51 Long term (current) use of inhaled steroids

== ENCOUNTER → 2024-11-07 | Outpatient (REF) | payer OTHER, MEDICARE ==
[~2024-11-07] MED LIST changes: -ALPH600C PO; +ALPH600C2 PO; -CHOL4POW36; +CHOL4POW36 PO; +ERGO500029 PO; +FLUO-365 PO; -FLUO20CA22 PO; +GABA-1172 PO; -GABA-282 PO
[2024-11-08 13:11] LABS: APPEARANCE, URINE HAZY (CLEAR); BACTERIA, URINE AUTO NEGATIVE (NEGATIVE); BILIRUBIN, URINE AUTO NEGATIVE (NEGATIVE); BLOOD, URINE BLOOD NEGATIVE (NEGATIVE); COLOR, URINE YELLOW (YELLOW); GLUCOSE, URINE (UA) AUTO NEGATIVE (NEGATIVE); KETONE, URINE AUTO NEGATIVE (NEGATIVE); LEUKOCYTE ESTERASE, URINE AUTO NEGATIVE (NEGATIVE); MUCUS, URINE SMALL (NEGATIVE); NITRITE, URINE AUTO NEGATIVE (NEGATIVE); PROTEIN, URINE AUTO 1+ mg/dL (NEGATIVE); RBC, URINE AUTO 0 /HPF (0-3); SPECIFIC GRAVITY URINE AUTO 1.027 (1.002-1.035); SQUAMOUS EPITHELIAL CELL UR AU 2 /HPF (0-6); UROBILINOGEN, URINE AUTO 0.2 mg/dL (0.0-2.0); WBC, URINE AUTO 0 /HPF (0-3)
== END ==
LOC: M LAB REF 12:34
PROVIDERS: ATTEND Registered Nurse
DX: N30.00 Acute cystitis without hematuria (principal)

== ENCOUNTER 2025-05-20 16:40 | Inpatient (IN) | payer MEDICARE, OTHER ==
[~2025-05-20] VITALS: Ht 154.9 cm; Wt 125.0 kg
[2025-05-20] MEDS ORDERED: GABA-1490 PO (17:12)
[2025-05-20] MEDS ORDERED: JARD1TAB3 PO (17:12)
[2025-05-20] MEDS: ONDANSETRON 4MG/2ML VIAL IV ONE (17:57)
[2025-05-20] MEDS: MORPHINE 4 MG/ML 1 ML VIAL IV PRN (17:58)
[2025-05-20 18:17] LABS: PLATELET COUNT, AUTOMATED 226 10^3/uL (150-450)
[2025-05-20 18:43] LABS: CALCIUM LEVEL 8.9 MG/DL (8.3-10.6); CARBON DIOXIDE LEVEL 25 MMOL/L (20-31); CHLORIDE LEVEL 103 MMOL/L (98-107); CREATININE FOR GFR 0.64 MG/DL (0.55-1.30); GLOMERULAR FILTRATION RATE > 90.0 (>39); POTASSIUM SERUM 4.0 MMOL/L (3.5-5.1); SODIUM LEVEL 140 MMOL/L (136-145)
[2025-05-20] MEDS: LIDOCAINE 1% MDV 20 ML VIAL SC ONE (19:43)
[2025-05-20 20:11] LABS: SOURCE, BODY FLUID CRYSTALS LFT KNEE
[2025-05-20 20:16] LABS: CRYSTALS, BODY FLUID NONE SEEN (NONE SEEN)
[2025-05-20] MEDS ORDERED: ONDANSETRON 4MG/2ML VIAL IV PRN (23:10)
[2025-05-20] MEDS ORDERED: SIMV80TA13 PO (23:35)
[2025-05-20] MEDS ORDERED: METF500T13 PO (23:37)
[2025-05-20] MEDS ORDERED: ALBU8.5H INH (23:37)
[2025-05-20] MEDS ORDERED: HOME MED LIST COMPLETE! XX SCH (23:40)
[2025-05-21] MEDS: KETOROLAC 30 MG/ML 1 ML VIAL IV ONE (00:12)
[2025-05-21] MEDS ORDERED: ALBUTEROL 90 MCG/ACT 8 GM HFA INHALER INH PRN (07:45)
[2025-05-21] MEDS: ASPIRIN 81 MG ENTERIC TABLET PO SCH (08:57)
[2025-05-21] MEDS: LOSARTAN 50 MG TABLET PO SCH (08:58)
[2025-05-21] MEDS: FLUoxetine 20 MG CAP PO SCH (08:58)
[2025-05-21] MEDS: CLOPIDOGREL 75 MG TAB PO SCH (08:59)
[2025-05-21] MEDS: GABAPENTIN 400 MG CAP PO SCH (08:59)
[2025-05-21] MEDS: FOLIC ACID 1 MG TAB PO SCH (08:59)
[2025-05-21] MEDS: FUROSEMIDE 20 MG TAB PO SCH (08:59)
[2025-05-21] MEDS ORDERED: PANTOPRAZOLE 40MG TAB PO SCH (09:00)
[2025-05-21] MEDS: KETOROLAC 30 MG/ML 1 ML VIAL IV PRN (09:02)
[2025-05-21] MEDS: CHOLESTYRAMINE 4 GM PWD PKT PO SCH (10:47)
[2025-05-21 13:08] LABS: KETONE, URINE AUTO RFX NEGATIVE (NEGATIVE); LEUKOCYTE ESTERASE UR AUTO RFX NEGATIVE (NEGATIVE); NITRITE, URINE AUTO RFX NEGATIVE (NEGATIVE); RBC, URINE AUTO RFX 1 /HPF (0-3); SQUAM EPITHELIAL CELL UR AURFX 2 /HPF (0-6); WBC, URINE AUTO RFX 1 /HPF (0-3)
[2025-05-21 15:22] VITALS: BP 110/57; TEMP 98.2; O2SAT 98
[2025-05-21] MEDS: DICLOFENAC EPOLAMINE 1.3% PATCH TOP SCH (18:10)
[2025-05-21 18:41] LABS: ALT/SGPT 21.0 U/L (7.0-40); AST/SGOT 24.0 U/L (<34)
[2025-05-21 20:04] VITALS: BP 110/56; TEMP 98.2; O2SAT 95
[2025-05-21] MEDS: SIMVASTATIN 40 MG TAB PO SCH (20:16)
[2025-05-21] MEDS: AUGMENTIN 875 MG TAB PO SCH (20:16)
[2025-05-21] MEDS: MAGNESIUM OXIDE 400 MG TAB PO SCH (20:16)
[2025-05-21] MEDS: PANTOPRAZOLE 20 MG TAB PO SCH (20:16)
[2025-05-21] MEDS: HEPARIN SOD 5000 UNITS/ML 1 ML VIAL/SYRINGE SQ SCH (20:42)
[2025-05-21 21:16] LABS: ESTIMATED AVERAGE GLUCOSE 120.0 MG/DL (60-110)
[2025-05-22 06:01] VITALS: BP 149/76; TEMP 97.9; O2SAT 99
[2025-05-22 06:38] LABS: PLATELET COUNT, AUTOMATED 193 10^3/uL (150-450)
[2025-05-22 07:11] LABS: CALCIUM LEVEL 8.4 MG/DL (8.3-10.6); CARBON DIOXIDE LEVEL 27.0 MMOL/L (20-31); CHLORIDE LEVEL 105.0 MMOL/L (98-107); CREATININE FOR GFR 0.77 MG/DL (0.55-1.30); GLOMERULAR FILTRATION RATE 82.4 (>39); POTASSIUM SERUM 3.9 MMOL/L (3.5-5.1); SODIUM LEVEL 143.0 MMOL/L (136-145)
[2025-05-22 14:41] VITALS: BP 123/60; TEMP 98.3; O2SAT 97
[2025-05-22 18:31] VITALS: BP 130/58; TEMP 97.2; O2SAT 96
[2025-05-22] MEDS: GABAPENTIN 400 MG CAP PO SCH (20:17)
[2025-05-22 21:18] VITALS: BP 108/56; TEMP 97.8; O2SAT 93
[2025-05-23] VITALS (8 sets, daily range): BP systolic 107–153; BP diastolic 53–70; TEMP 97.6–99.3; O2SAT 92–97
[2025-05-23 06:54] LABS: PLATELET COUNT, AUTOMATED 197 10^3/uL (150-450)
[2025-05-23 07:19] LABS: CALCIUM LEVEL 8.2 MG/DL (8.3-10.6); CARBON DIOXIDE LEVEL 27 MMOL/L (20-31); CHLORIDE LEVEL 109 MMOL/L (98-107); CREATININE FOR GFR 0.71 MG/DL (0.55-1.30); GLOMERULAR FILTRATION RATE > 90.0 (>39); POTASSIUM SERUM 4.5 MMOL/L (3.5-5.1); SODIUM LEVEL 145 MMOL/L (136-145)
[2025-05-23] MEDS ORDERED: VANCOMYCIN HCL 1,000 MG, VIAL MATE ADAPTER 1 EACH in NS 250 ML IV SCH (08:15)
[2025-05-23] MEDS ORDERED: ISOVUE-370 76% 100 ML VIAL As Ordered ONE (08:51)
[2025-05-23 09:00] LABS: C REACTIVE PROTEIN QUANTITATIV 7.01 MG/DL (<1.0)
[2025-05-23] MEDS: ceFAZolin SODIUM 2 GM in DEXTROSE 5% (D5W) ADV/MINI-BAG 50 ML IV SCH (09:44)
[2025-05-23] MEDS: VANCOMYCIN HCL 1,750 MG, VIAL MATE ADAPTER 1 EACH in NS 500 ML IV ONE (11:35)
[2025-05-23 15:09] LABS: SOURCE, BODY FLUID LFT KNEE
[2025-05-23 15:36] LABS: CRYSTALS, BODY FLUID NONE SEEN (NONE SEEN); SOURCE, BODY FLUID CRYSTALS LFT KNEE
[2025-05-23] MEDS: VANCOMYCIN HCL 1,000 MG, VIAL MATE ADAPTER 1 EACH in NS 250 ML IV SCH (21:45)
[2025-05-24 06:15] VITALS: BP 131/70; TEMP 97.6; O2SAT 99
[2025-05-24 06:39] LABS: PLATELET COUNT, AUTOMATED 223 10^3/uL (150-450)
[2025-05-24 06:57] LABS: C REACTIVE PROTEIN QUANTITATIV 2.94 MG/DL (<1.0); CALCIUM LEVEL 8.5 MG/DL (8.3-10.6); CARBON DIOXIDE LEVEL 28 MMOL/L (20-31); CHLORIDE LEVEL 106 MMOL/L (98-107); CREATININE FOR GFR 0.56 MG/DL (0.55-1.30); GLOMERULAR FILTRATION RATE > 90.0 (>39); POTASSIUM SERUM 4.4 MMOL/L (3.5-5.1); SODIUM LEVEL 145 MMOL/L (136-145)
[2025-05-24 10:00] VITALS: BP 130/60; TEMP 97.9; O2SAT 96
[2025-05-24 14:00] VITALS: BP 110/58; TEMP 97.6; O2SAT 97
[2025-05-24] MEDS ORDERED: cefTRIAXone SOD 2 GM in DEXTROSE 5% (D5W) ADV/MINI-BAG 50 ML IV SCH (14:20)
[2025-05-24] MEDS: ceFAZolin SODIUM 2 GM in DEXTROSE 5% (D5W) ADV/MINI-BAG 50 ML IV SCH (15:13)
[2025-05-24 18:00] VITALS: BP 120/60; TEMP 97.9; O2SAT 96
[2025-05-24 19:49] VITALS: BP 117/87; TEMP 98; O2SAT 96
[2025-05-25 05:13] VITALS: BP 141/61; TEMP 97.5; O2SAT 98
[2025-05-25 07:14] LABS: PLATELET COUNT, AUTOMATED 225 10^3/uL (150-450)
[2025-05-25 07:34] LABS: C REACTIVE PROTEIN QUANTITATIV 1.31 MG/DL (<1.0); CALCIUM LEVEL 8.6 MG/DL (8.3-10.6); CARBON DIOXIDE LEVEL 30 MMOL/L (20-31); CHLORIDE LEVEL 103 MMOL/L (98-107); CREATININE FOR GFR 0.58 MG/DL (0.55-1.30); GLOMERULAR FILTRATION RATE > 90.0 (>39); POTASSIUM SERUM 4.3 MMOL/L (3.5-5.1); SODIUM LEVEL 142 MMOL/L (136-145)
[2025-05-25 10:00] VITALS: BP 116/58; TEMP 98.1; O2SAT 93
[2025-05-25 14:00] VITALS: BP 134/63; TEMP 97.7; O2SAT 99
[2025-05-25 17:30] VITALS: BP 155/70; TEMP 98.2; O2SAT 95
[2025-05-25 19:45] VITALS: BP 123/60; TEMP 98; O2SAT 98
[2025-05-26 04:40] VITALS: BP 114/55; TEMP 97.2; O2SAT 99
[2025-05-26 06:52] LABS: PLATELET COUNT, AUTOMATED 254 10^3/uL (150-450)
[2025-05-26 07:15] LABS: C REACTIVE PROTEIN QUANTITATIV 0.79 MG/DL (<1.0); CALCIUM LEVEL 8.4 MG/DL (8.3-10.6); CARBON DIOXIDE LEVEL 29 MMOL/L (20-31); CHLORIDE LEVEL 102 MMOL/L (98-107); CREATININE FOR GFR 0.57 MG/DL (0.55-1.30); GLOMERULAR FILTRATION RATE > 90.0 (>39); POTASSIUM SERUM 4.3 MMOL/L (3.5-5.1); SODIUM LEVEL 141 MMOL/L (136-145)
[2025-05-26 10:00] VITALS: BP 114/56; TEMP 98; O2SAT 98
[2025-05-26 14:00] VITALS: BP 133/65; TEMP 97.7; O2SAT 99
[2025-05-26] MEDS ORDERED: SODIUM CHLORIDE 0.9% INJ 10 ML SYR IV PRN (18:20)
[2025-05-26 21:24] VITALS: BP 127/58; TEMP 98.7; O2SAT 95
[2025-05-27 06:05] VITALS: BP 122/57; TEMP 97.8; O2SAT 96
[2025-05-27 07:47] LABS: PLATELET COUNT, AUTOMATED 258 10^3/uL (150-450)
[2025-05-27 08:10] LABS: C REACTIVE PROTEIN QUANTITATIV 0.73 MG/DL (<1.0); CALCIUM LEVEL 8.6 MG/DL (8.3-10.6); CARBON DIOXIDE LEVEL 27 MMOL/L (20-31); CHLORIDE LEVEL 107 MMOL/L (98-107); CREATININE FOR GFR 0.55 MG/DL (0.55-1.30); GLOMERULAR FILTRATION RATE > 90.0 (>39); POTASSIUM SERUM 4.6 MMOL/L (3.5-5.1); SODIUM LEVEL 142 MMOL/L (136-145)
[2025-05-27] MEDS: SODIUM CHLORIDE 0.9% INJ 10 ML SYR IV SCH (08:30)
[2025-05-27 12:28] VITALS: BP 130/63; TEMP 97.7; O2SAT 100
[2025-05-27 14:00] VITALS: BP 147/57; TEMP 97.8; O2SAT 98
[2025-05-27 18:00] VITALS: BP 122/62; TEMP 97.7; O2SAT 98
[2025-05-27] MEDS ORDERED: VANCOMYCIN 125MG CAPSULE PO SCH (18:00)
[2025-05-27] MEDS: FIDAXOMICIN 200 MG TAB PO SCH (20:08)
[2025-05-27 21:06] VITALS: BP 104/60; TEMP 98; O2SAT 99
[2025-05-27 23:15] VITALS: BP 102/50; TEMP 98.2; O2SAT 95
[2025-05-28 06:40] VITALS: BP 139/63; TEMP 97.9; O2SAT 98
[2025-05-28 06:54] LABS: PLATELET COUNT, AUTOMATED 259 10^3/uL (150-450)
[2025-05-28 07:12] LABS: C REACTIVE PROTEIN QUANTITATIV 0.66 MG/DL (<1.0); CALCIUM LEVEL 8.7 MG/DL (8.3-10.6); CARBON DIOXIDE LEVEL 28 MMOL/L (20-31); CHLORIDE LEVEL 106 MMOL/L (98-107); CREATININE FOR GFR 0.55 MG/DL (0.55-1.30); GLOMERULAR FILTRATION RATE > 90.0 (>39); POTASSIUM SERUM 4.0 MMOL/L (3.5-5.1); SODIUM LEVEL 144 MMOL/L (136-145)
[2025-05-28] MEDS: ACETAMINOPHEN 500 MG TAB PO PRN (08:37)
[2025-05-28 08:43] VITALS: BP 148/65; TEMP 98; O2SAT 98
[2025-05-28 22:45] VITALS: BP 134/61; TEMP 97.6; O2SAT 98
[2025-05-28] MEDS: NAPROXEN 250 MG TAB PO PRN (23:46)
[2025-05-29 06:44] VITALS: BP 143/63; TEMP 98; O2SAT 100
[2025-05-29 09:03] VITALS: BP 133/72; TEMP 97.8; O2SAT 100
[2025-05-29 14:57] VITALS: BP 133/60; TEMP 98.1; O2SAT 97
[2025-05-29 21:08] VITALS: BP 122/58; TEMP 97.7; O2SAT 93
[2025-05-30 06:40] VITALS: BP 159/72; TEMP 97.7; O2SAT 97
[2025-05-30 14:32] VITALS: BP 147/67; TEMP 97.5; O2SAT 99
[2025-05-30 19:50] VITALS: BP 135/63; TEMP 98; O2SAT 97
[2025-05-31 04:43] VITALS: BP 142/72; TEMP 97.5; O2SAT 97
[2025-05-31 19:48] VITALS: BP 129/60; TEMP 98.2; O2SAT 97
[2025-06-01 04:27] VITALS: BP 141/77; TEMP 97.4; O2SAT 98
[2025-06-01] MEDS: NYSTATIN 100,000 UNITS/GM TOPICAL PWD 15 GM TOP SCH (20:50)
[2025-06-02 04:30] VITALS: BP 127/58; TEMP 97.3; O2SAT 97
[2025-06-02 08:42] VITALS: BP 130/64; TEMP 97.8; O2SAT 97
[2025-06-03 06:51] VITALS: BP 132/64; TEMP 98; O2SAT 97
[2025-06-04 06:01] VITALS: BP 137/65; TEMP 97.8; O2SAT 94
[2025-06-04 10:16] VITALS: BP 124/60
[2025-06-04] MEDS ORDERED: NYST10006 TOP (15:06)
[2025-06-04] MEDS ORDERED: FIDA200TA PO (15:08)
[2025-06-04] MEDS ORDERED: ACET32TAB PO (15:11)
== END 2025-06-04 15:50 | disposition home health service (06) | DRG 549 ==
LOC: M ED 16:40 → EDBD 16:40 → M ED INP 16:41 → M MS5PR 05-21 15:07 → OBSVTOIN 05-23 11:20
PROVIDERS: ADMIT Student in an Organized Health Care Education/Training Program; ATTEND Internal Medicine
PROC: 0S9D3ZX Drainage of Left Knee Joint, Percutaneous Approach, Diagnostic (ICD-10-PCS; principal; 2025-05-23)
DX: M00.9 Pyogenic arthritis, unspecified (principal); I13.0 Hypertensive heart and chronic kidney disease with heart failure and stage 1 through stage 4 chronic kidney disease, or unspecified chronic kidney disease; Z68.42 Body mass index [BMI] 45.0-49.9, adult; I50.30 Unspecified diastolic (congestive) heart failure; M25.562 Pain in left knee; G89.29 Other chronic pain; M19.90 Unspecified osteoarthritis, unspecified site; M54.9 Dorsalgia, unspecified; E11.22 Type 2 diabetes mellitus with diabetic chronic kidney disease; K21.9 Gastro-esophageal reflux disease without esophagitis; N18.30 Chronic kidney disease, stage 3 unspecified; Z90.49 Acquired absence of other specified parts of digestive tract; Z90.79 Acquired absence of other genital organ(s); Z79.82 Long term (current) use of aspirin; R19.7 Diarrhea, unspecified; Z79.899 Other long term (current) drug therapy; N32.81 Overactive bladder; R09.02 Hypoxemia; F39 Unspecified mood [affective] disorder; E78.5 Hyperlipidemia, unspecified; E83.42 Hypomagnesemia; I73.9 Peripheral vascular disease, unspecified; E11.51 Type 2 diabetes mellitus with diabetic peripheral angiopathy without gangrene; E66.01 Morbid (severe) obesity due to excess calories

== ENCOUNTER 2025-06-04 15:56 | Outpatient (CLI) | payer OTHER, MEDICARE ==
[~2025-06-04 15:56] MED LIST changes: +ACET32TAB PO; +ALBU8.5H INH; +FIDA200TA PO; +GABA-1490 PO; +JARD1TAB3 PO; +NYST10006 TOP; +SIMV80TA13 PO
[2025-06-04] MEDS: DALBAVANCIN 1,500 MG in D5W 250 ML IV ONE (16:52)
== END 2025-06-04 17:45 | disposition home or self-care (01) ==
LOC: M MS5PR 15:56 → M OPCLI5PR 15:56
PROVIDERS: ATTEND Internal Medicine
DX: R78.81 Bacteremia (principal)
CPT/HCPCS: 96365; J0875